=== PATIENT | female | born 1990 | race African-American/Black ===

== ENCOUNTER 2025-03-27 14:18 | Emergency (ER) | payer OTHER ==
[~2025-03-27] VITALS: Ht 170.2 cm; Wt 101.6 kg
[2025-03-27] MEDS ORDERED: LISINOPRIL PO (14:43)
[2025-03-27] MEDS: CYCLOBENZAPRINE HCL 10 MG TABLET PO ONE (15:30)
[2025-03-27] MEDS: LIDOCAINE 5% PATCH TD ONE (15:30)
[2025-03-27] MEDS: ACETAMINOPHEN 500 MG TABLET PO ONE (15:30)
[2025-03-27] MEDS ORDERED: IBUP-1955 PO (16:17)
[2025-03-27] MEDS ORDERED: LIDO30AD10 TP (16:17)
[2025-03-27] MEDS ORDERED: CYCL5TAB PO (16:17)
[2025-03-27] MEDS ORDERED: LIDOCAINE 5% PATCH TD ONE (16:43)
[2025-03-27] MEDS ORDERED: ACETAMINOPHEN 500 MG TABLET ONE (16:43)
[2025-03-27] MEDS ORDERED: CYCLOBENZAPRINE HCL 10 MG TABLET ONE (16:44)
[2025-03-27 18:00] VITALS: BP 125/77; TEMP 97.5; O2SAT 98
== END 2025-03-27 18:01 | disposition home or self-care (01) ==
LOC: ER 14:18
DX: S16.1XXA Strain of muscle, fascia and tendon at neck level, initial encounter (principal); S13.4XXA Sprain of ligaments of cervical spine, initial encounter; G89.29 Other chronic pain; M54.50 Low back pain, unspecified; R07.89 Other chest pain; V43.52XA Car driver injured in collision with other type car in traffic accident, initial encounter; Y93.89 Activity, other specified; Y92.488 Other paved roadways as the place of occurrence of the external cause; Y99.8 Other external cause status
CPT/HCPCS: 71045; 72110; 72125; A4606; A4663; A9150